=== PATIENT | male | born 1990 | race African-American/Black ===

== ENCOUNTER 2016-10-10 13:12 | Emergency (ER) | payer OTHER ==
[~2016-10-10] VITALS: Ht 170.2 cm; Wt 83.9 kg
[~2016-10-10 13:12] MED LIST: FISH OIL 1,0001 EAC1 PO; IBUPROFEN800 MG PO; MULTI VITAMINS1 TAB PO
--- NOTE | 2016-10-10 13:45 | ED GI/GU/ABDOMINAL COMPLAINT ---
History of Present Illness General Chief Complaint: Abdominal Pain/Flank Pain Stated Complaint: ABD CRAMPING X 1 WEEK Source: patient, old records Exam Limitations: no limitations Vital Signs & Intake/Output Vital Signs & Intake/Output Vital Signs Date Time Temp Pulse Resp B/P B/P Pulse O2 O2 Flow FiO2 Mean Ox Delivery Rate 10/10 1449 98.0 71 15 121/69 100 Room Air 10/10 1357 99 Room Air 10/10 1316 97.9 72 20 129/71 97 Room Air ED Intake and Output 10/11 0000 10/10 1200 Intake Total 0 Output Total Balance 0 Intake, Oral 0 Patient 185 lb Weight Allergies Coded Allergies: shellfish derived (HIVES, EYE SWELLING 02/28/16) Reconcile Medications Dicyclomine Hydrochloride (Bentyl) 10 MG CAPSULE 1 CAP PO TID pain [place]-3 Fatty Acids/Fish Oil (Fish Oil 1,000 MG Softgel) (Unknown Strength) CAPSULE (Unknown Dose) PO TID SUPPLEMENT (Reported) Triage Note: PT C/O ABDOMINAL CRAMPING X 1 WEEK. STATES THEY COME AND GO. C/O DIARRHEA THIS MORNING BUT DENIES N/V Triage Nurses Notes Reviewed? yes HPI: This is a 26-year-old male with no medical history presents to ER for evaluation complaining of generalized intermittent crampy abdominal pain associated with 1 episode of diarrhea this morning. He reports to the cramps have been going on for the past 1 week. He denies any nausea vomiting. No fever or chills no urinary complaints. He has not sought care for the symptoms are taken anything for his symptoms no history of abdominal surgeries in the past. (TANISHA EDEN) Past History Travel History Traveled to [place] past 21 day No Medical History Any Pertinent Medical History? 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 No (TANISHA EDEN) Review of Systems Review of Systems Constitutional: Reports: see HPI. All Other Systems: Reviewed and Negative Comments Review of systems: See HPI, All other systems negative. Constitutional, no chills no fever, no malaise no weight loss HEENT: No visual changes no sore throat no congestion, no ear pain Cardiovascular: No chest pain , no palpitation , no orthopnea Skin: no rashes, no change in skin Respiratory: No dyspnea no cough no sputum no hemoptysis GI: No nausea no vomiting, diarrhea, no bloating/constipation : No dysuria No hematuria, no frequency, no discharge Muscle skeletal: No joint pain, no joint swelling, no back pain, no neck pain, Neurologic: No numbness no confusion, no headache Psych: No stress no depression,. Heme/endocrine: No bruising no bleeding Immunology: No lymphadenopathy (TANISHA EDEN) Physical Exam Physical Exam General Appearance: well developed/nourished, alert, awake Gastrointestinal: soft Comments: Well-developed well-nourished person in no acute distress HEENT: Normal EENT exam; PERRL, EOMI, no nystagmus. HEAD is atraumatic. moist mucous membranes. Neck: Supple, no lymphadenopathy, normal range of motion without pain or tenderness Back: Nontender, no CVA tenderness. Full range of motion Cardiovascular: Regular rate and rhythms no murmurs rubs or gallops, normal JVP Respiratory: Chest nontender.There were no bony deformities, no asymmetry. No respiratory distress. Patient speaking in full complete sentences. Breath sounds clear to auscultation bilaterally: NO W/R/R Abdomen: Soft, nontender nondistended, no appreciable organomegaly. Normal bowel sounds. No rebound/guarding, No appreciable enlargement of the abdominal aorta, No ascites. Extremity: No edema, full range of motion of extremities, normal and equal pulses bilaterally, 5 out of 5 strength noted to bilateral upper and lower extremities Neuro: Alert oriented x3, motor sensory normal, cranial nerves II through XII grossly intact. There were no obvious focal neurologic abnormalities. Skin: No appreciable rash on exposed skin, skin is warm and dry. Psych: Mood and affect is normal, memory and judgment is normal. Core Measures ACS in differential dx? No Severe Sepsis Present: No Septic Shock Present: No (TANISHA EDEN) Progress Differential Diagnosis: appendicitis, bowel obstruction, colon cancer, cholecystitis, diverticulitis, gastritis, hepatitis, hernia, inflamm bowel dis, pancreatitis, perforated viscous, SBO Plan of Care: Orders Procedure Date/time Status LIPASE 10/10 134 Complete COMPREHENSIVE METABOLIC PANEL 10/10 134 Complete CBC WITHOUT DIFFERENTIAL 10/10 134 Complete AMYLASE 10/10 1344 Complete Laboratory Tests 10/10/16 1400: Anion Gap 9, Estimated GFR > 60, BUN/Creatinine Ratio 10.0, Glucose 83, Calcium 8.8, Total Bilirubin 0.4, AST 17, ALT 37, Alkaline Phosphatase 47, Total Protein 6.7, Albumin 3.9, Globulin 2.8, Albumin/Globulin Ratio 1.4, Amylase 90, Lipase 155, CBC w Diff NO MAN DIFF REQ, RBC 5.13, MCV 85.7, MCH 28.0, RDW 13.3, MPV 9.4 , Gran % 56.4, Lymphocytes % 30.5, Monocytes % 10.9 H, Eosinophils % 1.8, Basophils % 0.4, Absolute Granulocytes 2.2, Absolute Lymphocytes 1.2, Absolute Monocytes 0.4, Absolute Eosinophils 0.1, Absolute Basophils 0, PUBS MCHC 32.7 L Patient appears in no apparent distress asking several times throughout my evaluation how long this is going to take. Patient was on is not checked and on his phone during my evaluation the entire time labs ordered he denies any symptoms at this time I discussed with the patient at length all of their results. I had an extensive conversation regarding need for close follow up with their primary care physician this week as well as return precautions. I answered all of their questions, they feel comfortable with the plan and follow-up care. I discussed the medications that they will receive with the patient. I gave them signs and symptoms that could indicate an adverse reaction. I have advised them to limit their activities until they can see how they respond to the medication. (TANISHA EDEN) Initial ED EKG: none (TANISHA EDEN) Departure Departure Time of Disposition: 1359 Disposition: HOME OR SELF CARE Condition: Stable Clinical Impression Primary Impression: Abdominal pain Referrals: PATIENT HAS NO PRIMARY CARE DR (PCP/Family) Additional Instructions: bentyl for pain for pain. bland diet, clear liquids. follow up with your pmd, return to the ER with any concerns Departure Forms: Customer Survey General Discharge Information Prescriptions: Current Visit Scripts Dicyclomine Hydrochloride (Bentyl) 1 CAP PO TID #12 CAP (TANISHA EDEN) PA/SET UP OPERATOR Co-Sign Statement Statement: ED Attending supervision documentation- [] I saw and evaluated the patient. I have also reviewed all the pertinent lab results and diagnostic results. I agree with the findings and the plan of care as documented in the PA's/SET UP OPERATOR's documentation. [X] I have reviewed the ED Record and agree with the PA's/SET UP OPERATOR's documentation. [] Additions or exceptions (if any) to the PAs/SET UP OPERATOR's note and plan are summarized below: [] (NIECY JAVIER,TERESE)
[2016-10-10] MEDS ORDERED: BENTYL10 M1 PO (14:00)
[2016-10-10 14:04] LABS: ABSOLUTE BASOPHIL COUNT 0 /CUMM (0.0-0.2); ABSOLUTE EOSINOPHIL COUNT 0.1 /CUMM (0.0-0.7); ABSOLUTE GRANULOCYTE CT 2.2 /CUMM (1.4-6.5); ABSOLUTE LYMPH COUNT 1.2 /CUMM (1.2-3.4); ABSOLUTE MONOCYTE COUNT 0.4 /CUMM (0.10-0.60); BASOPHIL % 0.4 % (0.0-2.0); EOSINOPHIL % 1.8 % (0-5); GRANULOCYTE % 56.4 % (42.2-75.2); HEMATOCRIT 43.9 % (42-52); MEAN CORPUSCULAR HGB CONC 32.7 G/DL (33.0-37.0); MEAN CORPUSCULAR VOLUME 85.7 FL (80.0-94.0); MEAN PLATELET VOLUME 9.4 FL (7.4-10.4); PLATELET COUNT 170 /CUMM (130-400); RBC DISTRIBUTION WIDTH 13.3 % (11.5-14.5); RED BLOOD CELL CT 5.13 /CUMM (4.70-6.10); WHITE BLOOD CELL COUNT 3.9 /CUMM (4.8-10.8)
[2016-10-10 14:49] VITALS: BP 121/69
== END 2016-10-10 14:49 ==
LOC: ERH 13:12
PROVIDERS: Physician Assistant Medical
DX: R10.84 Generalized abdominal pain (principal)

== ENCOUNTER 2016-11-09 10:20 | Emergency (ER) | payer OTHER ==
[~2016-11-09] VITALS: Ht 170.2 cm; Wt 83.9 kg
[~2016-11-09 10:20] MED LIST changes: +BENTYL10 M1 PO
[2016-11-09 10:28] VITALS: BP 136/79
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
== END 2016-11-09 13:15 ==
LOC: ERH 10:20
DX: S20.211A Contusion of right front wall of thorax, initial encounter (principal); M25.562 Pain in left knee; V43.62XA Car passenger injured in collision with other type car in traffic accident, initial encounter; Y92.9 Unspecified place or not applicable
CPT/HCPCS: 71100-RT; 73562-LT

== ENCOUNTER 2017-09-26 11:57 | Emergency (ER) | payer OTHER ==
[~2017-09-26] VITALS: Ht 172.7 cm; Wt 83.9 kg
[~2017-09-26 11:57] MED LIST changes: +ADVIL200 M2 PO; +PENICILLIN V P500 M1 PO
[2017-09-26 12:02] VITALS: BP 149/89
--- NOTE | 2017-09-26 12:09 | ED GI/GU/ABDOMINAL COMPLAINT ---
History of Present Illness General Chief Complaint: General Adult Stated Complaint: DETERMINATON OF POTENTIAL STD? PER PT Source: patient, old records Exam Limitations: no limitations Vital Signs & Intake/Output Vital Signs & Intake/Output Vital Signs Date Time Temp Pulse Resp B/P B/P Pulse O2 O2 Flow FiO2 Mean Ox Delivery Rate 09/26 1202 96.7 92 18 149/89 98 Room Air Allergies Coded Allergies: No Known Allergies (11/09/16) Reconcile Medications Ibuprofen (Advil) 200 MG TABLET 4 TAB PO PRN PAIN (Reported) Triage Note: PT TO ER FOR STD CHECK. DENIES SYMPTOMS. PER PATIENT STARTING A NEW RELATIONSHIP AND "WOULD LIKE TO BE SAFE" Triage Nurses Notes Reviewed? yes Onset: Abrupt Duration: day(s): (1) Timing: single episode today Quality/Severity: no pain Sexually Active: Yes No Modifying Factors: none Associated Symptoms: denies HPI: 27-year-old male presents to the ER requesting STD testing. Patient states that he was with a previous partner and is concerned she may have had an STD. He has no complaints, he has no discharge urgency frequency or hematuria or dysuria. No pain in his penis or scrotum. No rashes to his skin no abdominal pain fever chills nausea vomiting. He denies history of STD in the past. Past History Travel History Traveled to [place] past 21 day No Medical History Any Pertinent Medical History? none Neurological: NONE EENT: NONE Cardiovascular: NONE Respiratory: NONE Gastrointestinal: NONE Hepatic: NONE Renal: NONE Musculoskeletal: NONE Psychiatric: NONE Endocrine: NONE Blood Disorders: NONE Cancer(s): NONE MEDICAL CARE ADMINISTRATOR/Reproductive: NONE Tetanus Vaccine: 02/20/16 Surgical History Surgical History: none Psychosocial History What is your primary language Welsh Tobacco Use: Never used Family History Hx Contributory? No Review of Systems Review of Systems Constitutional: Reports: see HPI. Comments Review of systems: See HPI, All other systems negative. Constitutional, no chills no fever HEENT: no sore throat Cardiovascular: No chest pain Skin: no rashes, no change in skin GI: No nausea no vomiting, no diarrhea, : No dysuria No hematuria, no frequency Muscle skeletal: No joint pain, no back pain Physical Exam Physical Exam General Appearance: well developed/nourished, alert, awake Gastrointestinal: soft, non-tender Comments: Well-developed well-nourished patient in no apparent distress. HEENT: Atraumatic, extraocular motion intact Neck: Supple, FROM Back: FROM Respiratory: No respiratory distress. Patient speaking in full complete sentences. : deferred Extremities: full range of motion Neuro: awake, alert, and oriented to person, place and time. There were no obvious focal neurologic abnormalities. Skin: Warm & dry;No appreciable rash on exposed skin Psych: Mood affect normal, normal memory normal judgment. Core Measures ACS in differential dx? No Sepsis Present: No Sepsis Focused Exam Completed? No Progress Differential Diagnosis: STD, urethritis, UTI/pyelo Plan of Care: Orders Procedure Date/time Status CULTURE,URINE 09/26 1217 Active CHLAMYDIA-GC DNA PROBE 09/26 1209 Active Microbiology 09/26 1225 URINE ROUT: Urine Culture - RECD 09/26 1225 URINE ROUT: GC DNA Probe - RECD 09/26 1225 URINE ROUT: Chlamydia DNA Probe (BALDEMAR) - RECD Discussed with patient plan of care, he has no complaints there is no discharge frequency urgency dysuria he will follow-up for the results Initial ED EKG: none Departure Departure Time of Disposition: 1215 Disposition: HOME OR SELF CARE Condition: Stable Clinical Impression Primary Impression: Concern about STD in male without diagnosis Referrals: Patient Has No Primary Care Dr (PCP/Family) Additional Instructions: as discussed you have been tested for sexually transmitted disease. please call the [facility] at [phone] tomorrow afternoon or sunday if you have not heard from us at that time. return with any concerns Departure Forms: Customer Survey General Discharge Information
== END 2017-09-26 12:32 ==
LOC: ERH 11:57
DX: Z20.2 Contact with and (suspected) exposure to infections with a predominantly sexual mode of transmission (principal)
CPT/HCPCS: 87086; 87491; 87591